=== PATIENT | male | born 1960 ===

== ENCOUNTER 2019-09-14 13:04 | Emergency (ER) | payer OTHER ==
[2019-09-14 13:54] LABS: #Eosinphils 0.3 thou/uL (0.0-0.7); #Lymphocytes 2.2 thou/uL (1.20-3.40); #Neutrophils 4.3 thou/uL (1.40-6.50); %Basophils 0.4 % (0.0-1.0); %Eosinophils 4.2 % (0.0-10.0); %Lymphocytes 27.7 % (21.0-51.0); %Monocytes 12.4 % (0.0-10.0); %Neutrophils 55.5 % (42.0-75.0); Hemoglobin 14.1 g/dL (14.0-18.0); Mean Corpuscular HGB CONC 33.5 g/dL (32.0-36.0); Mean Corpuscular Hemoglobin 30.7 pg (27.0-31.0); Mean Corpuscular Volume 91.8 fL (78.0-98.0); Mean Platelet Volume 9.4 fL (7.4-10.4); Platelet Count 197 thou/uL (130-400); RBC Distribution Width 11.5 % (11.5-14.5); Red Blood Cell (RBC) Count 4.58 mill/uL (4.70-6.10); White Blood Cell (WBC) Count 7.8 thou/uL (4.8-10.8)
--- NOTE | 2019-09-14 13:54 | RAD ---
Exam: Chest one view HISTORY:Syncopal episode. Mechanical fall one hour ago. Comparison: None. FINDINGS: Cardiac silhouette: Normal Aorta: Unremarkable Pulmonary vessels: Normal Costophrenic angles: Clear LUNGS: No masses or consolidation. Pneumothorax: None Osseous abnormalities: None IMPRESSION: No acute cardiopulmonary process.
--- NOTE | 2019-09-14 14:03 | RAD ---
Right shoulder 3 views HISTORY: Fall. Injury. FINDINGS: Joint space narrowing and osteophytosis at the acromioclavicular and glenohumeral joints. A lignment maintained. No acute fracture, dislocation, or aggressive osseous erosions. IMPRESSION : Osteoarthritic changes about the right shoulder. No acute osseous abnormalities are demonstrated.
--- NOTE | 2019-09-14 14:04 | RAD ---
Right humerus 2 views HISTORY: Fall. Injury. FINDINGS: Degenerative changes of the shoulder and elbow. Humerus is intact. No acute fracture, dislo cation, or radiopaque foreign bodies. IMPRESSION : No acute osseous abnormalities are demonstrated.
[2019-09-14 14:09] LABS: ALT (SGPT) 10 U/L (8-55); AST (SGOT) 12 U/L (5-34); Albumin 4.1 g/dL (3.5-5.0); Alkaline Phosphatase 68 U/L (40-110); Anion Gap 13 mmol/L (10-20); BUN (Urea Nitrogen) 15 mg/dL (8.4-25.7); Bilirubin, Total 1.5 mg/dL (0.2-1.2); Calc. Creatinine Clearance 0 mL/min (70-130); Calcium 8.9 mg/dL (7.8-10.44); Carbon Dioxide 25 mmol/L (22-29); Chloride 103 mmol/L (98-107); Estimated GFR-MDRD Greater than 90; Globulin 2.3 g/dL (2.4-3.5); Glucose 97 mg/dL (70-105); Potassium 4.7 mmol/L (3.5-5.1); Protein, Total 6.4 g/dL (6.0-8.3); Sodium 136 mmol/L (136-145)
== END 2019-09-14 15:32 ==
LOC: EEVIPCON 13:04 → ERS 13:04
DX: I95.9 Hypotension, unspecified (principal); R55 Syncope and collapse; M19.90 Unspecified osteoarthritis, unspecified site; I10 Essential (primary) hypertension; Z87.891 Personal history of nicotine dependence; Z79.899 Other long term (current) drug therapy; W19.XXXA Unspecified fall, initial encounter; Y92.149 Unspecified place in prison as the place of occurrence of the external cause
CPT/HCPCS: 36415; 71045; 80053; 84484; 85025; 93005; 96360; 96361